=== PATIENT | male | born 1970 | race Caucasian/White ===

== ENCOUNTER 2016-09-11 10:28 | Emergency (ER) | payer BC, OTHER ==
[~2016-09-11] VITALS: Ht 182.9 cm; Wt 96.5 kg
[2016-09-11 10:31] VITALS: Ht 182.9 cm; Wt 96.5 kg
[2016-09-11] MEDS ORDERED: HYDROmorphONE 1 MG/ML SYG IV STA ×2 (10:39→12:00)
[2016-09-11] MEDS ORDERED: ONDANSETRON 4 MG INJ IV STA ×2 (10:39→12:00)
[2016-09-11 11:03] LABS: ADD SCAN DIFF NO
[2016-09-11] MEDS ORDERED: SITA1TAB5 PO (11:14)
--- NOTE | 2016-09-11 11:20 | RADRPT ---
AMENDMENT: 09/12/2016 4:30:37 PM Meghna Ordaz MD Adjacent to the left distal ureter; there is a prominent, 9 x 9 x 9 mm calcification with a lucent c enter that likely represents a phlebolith. Potentially, it could represent a left distal ureteral s tone. Urologic follow-up is suggested. PROCEDURE: CT abdomen and pelvis without contrast. Site of service: emergency room. CLINICAL INDICATION: Periumbilical abdominal pain TECHNIQUE: CT scan of the abdomen and pelvis without contrast was performed on the CT scanner. Th e patient was scanned without intravenous contrast. Oral contrast was not administered. 3-D post p rocessing coronal and sagittal re-formations were obtained from the axial source images. Exam D L P [address] D V O L 17 mgy. This exam is limited due to lack of intravenous contrast. One or more of the following dose reduction techniques were used: Automated exposure control Adjustment of the mA and/or kV according to patient size. Use of iterative reconstruction technique. COMPARISON: December 02, 2008 FINDINGS: CT abdomen: The lung bases are clear. The heart size is normal, without pericardial thickening or effusion. The liver is normal in size and density without focal mass or intrahepatic biliary dilatation. The spleen is normal in size and homogeneous in density. The stomach is partially collapsed, but is jessi ssly unremarkable. The pancreas as visualized is normal. The gallbladder and biliary tree are unre markable and there is no evidence for biliary dilatation. The adrenal glands are symmetric and normal. In the right ureteropelvic junction; there are 2 stones causing moderate, acute, right collecting sy stem dilatation and perinephric stranding. The larger stone measures 2 x 2 x 1.2 cm in AP dimension , with a CT density of 1203 HU. The smaller stone measures 11 x 11 x 11 mm with an average density of 1030 Hounsfield units. Urologic follow-up is needed. The left kidney is atrophic. No left collecting system dilatation or obstructing stones are seen. The bladder is unremarkable. The aorta is of normal caliber. There is no retroperitoneal lymphadenopathy. The neris hepatis bhavna on is clear. The bowel and mesentery, as visualized, are equally unremarkable. CT pelvis: The small bowel loops situated within the pelvis are unremarkable. The appendix is normal. The sig moid colon and rectum are all unremarkable. No mass, lymphadenopathy, or free fluid is seen. No ac [place] inflammation is seen. Mild constipation is present The pelvic organs are normal. The pelvic sidewalls and inguinal regions are clear. The surrounding osseous structures are normal. No osteolytic or osteoblastic lesion is detected. IMPRESSION: Acute, moderate, right collecting system dilatation with the right perinephric stranding due to 2, l arge, obstructing right UPJ stones measuring 2 x 2 x 1.2 cm, and 11 x 11 x 11 mm. The stones have a n average CT density of 1200 and 1030 HU respectively. Urologic follow-up is needed. RPTAT: QQ .Meghna Ordaz MD, MD Date Time Electronically viewed and signed by .Meghna Ordaz MD, on 09/12/2016 16:30 .F/
[2016-09-11 11:34] LABS: BASOPHIL # 0.1 10^3/ul (0.0-0.1); BASOPHILS % 0.5 % (0.0-2.0); EOSINOPHILS # 0.1 10^3/ul (0.0-0.5); EOSINOPHILS % 0.8 % (0.0-7.0); HEMOGLOBIN 15.8 g/dl (14.0-18.0); LYMPHOCYTES # 2.1 10^3/ul (0.8-2.9); LYMPHOCYTES % 19.3 % (15.0-51.0); MEAN CORPUSCULAR HEMOGLOBIN 27.5 pg (29.0-33.0); MEAN CORPUSCULAR HGB CONC 33.6 g/dl (32.0-37.0); MEAN CORPUSCULAR VOLUME 81.9 fl (82.0-101.0); MEAN PLATELET VOLUME 10.8 fl (7.4-10.4); MONOCYTE # 0.7 10^3/ul (0.3-0.9); PLATELET COUNT 206 10^3/UL (140-415); RED BLOOD COUNT 5.74 10^6/ul (4.70-6.10); RED CELL DISTRIBUTION WIDTH 12.5 % (11.5-14.5)
[2016-09-11 11:47] LABS: CALCIUM 9.8 mg/dl (8.4-10.2); CREATININE 1.73 mg/dl (0.61-1.24)
[2016-09-11 13:19] VITALS: BP 154/94; PULSE 71; RESP 12
[2016-09-11] MEDS ORDERED: TAMS-14 PO (13:47)
[2016-09-11] MEDS ORDERED: CIPR500T4 PO (13:47)
[2016-09-11] MEDS ORDERED: HYDR-902 PO (13:47)
--- NOTE | 2016-09-11 13:54 | ERD ---
ER Documentation Chief Complaint Date/Time DATE: 09/11/16 TIME: 13:48 Chief Complaint Complains of right flank pain HPI This 46-year-old male with a history of renal stones is complaining of the onset this morning of sharp right flank pain radiating into the right mid abdominal region. He says the pain is sharp in exactly like prior kidney stones. He has nausea but no vomiting diarrhea no chest pain or shortness of breath no gross hematuria. Patient states he gets kidney stone attacks every 6 months. ROS All systems reviewed and are negative except as per history of present illness. Medications Home Meds Active Scripts Ciprofloxacin Hcl* (Ciprofloxacin Hcl*) 500 Mg Tablet, 500 MG PO BID for 7 Days , TAB Prov:ANDREW ÁLVAREZSTTINGS Riddhi. DO 09/11/16 Tamsulosin Hcl* (Flomax*) 0.4 Mg Cap.er.24h, 0.4 MG PO BID, #30 CAP Prov:CARMENCITA ÁLVAREZS Riddhi. DO 09/11/16 Hydrocodone/Acetaminophen ([place] 10-325 Tablet) 1 Each Tablet, 1 TAB PO Q6H Y for PAIN, #30 TAB Prov:ANDREW ÁLVAREZSTTINGS A. DO 09/11/16 Reported Medications Sitagliptin Phos/Metformin HCl (Janumet 50-1,000 mg Tablet) 1 Each Tablet, 1 EACH PO BID WITH MEALS, TAB 09/11/16 Allergies Allergies: Coded Allergies: No Known Allergy (Unverified , 09/11/16) PMhx/Soc Hx Psychiatric Problems: No Hx Miscellaneous Medical Probl: Yes (DM) Hx Alcohol Use: No Hx Substance Use: No Hx Tobacco Use: No Smoking Status: Never smoker FmHx Family History: No coronary disease Physical Exam Vitals Vital Signs Date Time Temp Pulse Resp B/P Pulse Ox O2 Delivery O2 Flow Rate FiO2 09/11/16 12:15 72 11 157/97 93 Room Air 09/11/16 10:54 65 19 164/99 100 Room Air 09/11/16 10:31 97.8 66 20 187/91 100 Physical Exam Const: Well-developed, well-nourished Head: Atraumatic, normocephalic Eyes: Normal Conjunctiva, PERRLA, EOMI, normal sclera, no nystagmus ENT: Normal External Ears, Nose and Mouth, moist mucus membranes. Neck: Full range of motion. No meningismus, no lymphadenopathy. Resp: Clear to auscultation bilaterally, no wheezing, rhonchi, rales Cardio: Regular rate and rhythm, no murmurs, S1 S2 present Abd: Soft, non tender x 4, non distended. Normal bowel sounds, no guarding or rebound, no pulsitile abdominal masses or bruits Skin: No petechiae or rashes, no ecchymosis , no maculopapular rash Back: Mild right CVA tenderness Ext: No cyanosis, or edema, FROM x 4, normal inspection, neurovascularly intact x 4 Neur: Awake and alert, STR 5/5 x 4, sensation intact x 4, no focal findings, cerebellum intact Psych: Normal Mood and Affect Result Diagram: 09/11/16 1050 09/11/16 1050 Results 24 hrs Laboratory Tests Test 09/11/16 10:50 White Blood Count 11.010^3/ul Red Blood Count 5.7410^6/ul Hemoglobin 15.8g/dl Hematocrit 47.0% Mean Corpuscular Volume 81.9fl Mean Corpuscular Hemoglobin 27.5pg Mean Corpuscular Hemoglobin Concent 33.6g/dl Red Cell Distribution Width 12.5% Platelet Count 48306^3/UL Mean Platelet Volume 10.8fl Neutrophils % 73.0% Lymphocytes % 19.3% Monocytes % 6.0% Eosinophils % 0.8% Basophils % 0.5% Nucleated Red Blood Cells % 0.0/100WBC Neutrophils # 8.010^3/ul Lymphocytes # 2.110^3/ul Monocytes # 0.710^3/ul Eosinophils # 0.110^3/ul Basophils # 0.110^3/ul Nucleated Red Blood Cells # 0.010^3/ul Sodium Level 142mmol/L Potassium Level 4.0mmol/L Chloride Level 105mmol/L Carbon Dioxide Level 24mmol/L Anion Gap 17 Blood Urea Nitrogen 24mg/dl Creatinine 1.73mg/dl Glucose Level 167mg/dl Calcium Level 9.8mg/dl Current Medications Medications (Trade) Dose Ordered Sig/Delmi Route PRN Reason Start Time Stop Time Status Last Admin Dose Admin Hydromorphone HCl (Dilaudid) 1 mg ONCE STAT IV 09/11/16 10:39 09/11/16 10:46 DC 09/11/16 10:48 Ondansetron HCl (Zofran Inj) 4 mg ONCE STAT IV 09/11/16 10:39 09/11/16 10:46 DC 09/11/16 10:47 Hydromorphone HCl (Dilaudid) 1 mg ONCE STAT IV 09/11/16 12:00 09/11/16 12:01 DC 09/11/16 12:05 Ondansetron HCl (Zofran Inj) 4 mg ONCE STAT IV 09/11/16 12:00 09/11/16 12:01 DC 09/11/16 12:04 Procedures/MDM PROCEDURE: CT abdomen and pelvis without contrast. Site of service: emergency room. CLINICAL INDICATION: Periumbilical abdominal pain TECHNIQUE: CT scan of the abdomen and pelvis without contrast was performed on the CT scanner. The patient was scanned without intravenous contrast. Oral contrast was not administered. 3-D post processing coronal and sagittal re- formations were obtained from the axial source images. Exam D L P [address] D V O L 17 mgy. This exam is limited due to lack of intravenous contrast. One or more of the following dose reduction techniques were used: Automated exposure control Adjustment of the mA and/or kV according to patient size. Use of iterative reconstruction technique. COMPARISON: December 02, 2008 FINDINGS: CT abdomen: The lung bases are clear. The heart size is normal, without pericardial thickening or effusion. The liver is normal in size and density without focal mass or intrahepatic biliary dilatation. The spleen is normal in size and homogeneous in density. The stomach is partially collapsed, but is grossly unremarkable. The pancreas as visualized is normal. The gallbladder and biliary tree are unremarkable and there is no evidence for biliary dilatation. The adrenal glands are symmetric and normal. In the right ureteropelvic junction; there are 2 stones causing moderate, acute , right collecting system dilatation and perinephric stranding. The larger stone measures 2 x 2 x 1.2 cm in AP dimension, with a CT density of 1203 HU. The smaller stone measures 11 x 11 x 11 mm with an average density of 1030 Hounsfield units. Urologic follow-up is needed. The left kidney is atrophic. No left collecting system dilatation or obstructing stones are seen. The bladder is unremarkable. The aorta is of normal caliber. There is no retroperitoneal lymphadenopathy. The neris hepatis region is clear. The bowel and mesentery, as visualized, are equally unremarkable. CT pelvis: The small bowel loops situated within the pelvis are unremarkable. The appendix is normal. The sigmoid colon and rectum are all unremarkable. No mass , lymphadenopathy, or free fluid is seen. No acute inflammation is seen. Mild constipation is present The pelvic organs are normal. The pelvic sidewalls and inguinal regions are clear. The surrounding osseous structures are normal. No osteolytic or osteoblastic lesion is detected. IMPRESSION: Acute, moderate, right collecting system dilatation with the right perinephric stranding due to 2, large, obstructing right UPJ stones measuring 2 x 2 x 1.2 cm , and 11 x 11 x 11 mm. The stones have an average CT density of 1200 and 1030 HU respectively. Urologic follow-up is needed. RPTAT: QQ .Meghna Ordaz MD, Date Time Electronically viewed and signed by .Meghna Ordaz MD, on 09/11/2016 11:19 .F/ CC: HENOK ÁLVAREZ DO Patient's pain is controlled. Discussed the case and CT scan lab findings with Dr. Kuhn. The patient will be seen in his office this week he told me to have them call tomorrow. Reviewed with the patient signs and symptoms to return. Will discharge him on Flomax, Cipro, hydrocodone Departure Diagnosis: Primary Impression: Ureterolithiasis Condition: Stable Patient Instructions: Kidney Stone W/ Colic Referrals: LUCY KUHN MD, APOSTOLOS A. DO Sep 11, 2016 13:54
== END 2016-09-11 14:08 | disposition home or self-care (01) ==
LOC: E/R 10:28
DX: N20.1 Calculus of ureter (principal); E11.9 Type 2 diabetes mellitus without complications; Z79.84 Long term (current) use of oral hypoglycemic drugs
CPT/HCPCS: 36415; 74176; 80048; 85025; 96374; 96375; 96376; J1170; J2405; Z7502; Z7610

== ENCOUNTER 2016-09-12 09:16 | Inpatient (IN) | payer OTHER ==
[2016-09-12] VITALS (12 sets, daily range): BP systolic 131–159; BP diastolic 62–95; PULSE 92–104; RESP 15–21; TEMP 98.3; Ht 185.4 cm; Wt 97.1 kg
[~2016-09-12] VITALS: Ht 185.4 cm; Wt 97.1 kg
[~2016-09-12 09:16] MED LIST: CIPR500T4 PO; HYDR-902 PO; SITA1TAB5 PO; TAMS-14 PO
[2016-09-12] MEDS ORDERED: SOD CHLORIDE 0.9% 1,000 ML IV STA ×2 (09:32→11:38)
[2016-09-12] MEDS ORDERED: HYDROmorphONE 1 MG/ML SYG IV STA ×2 (09:32→13:46)
[2016-09-12] MEDS ORDERED: ONDANSETRON 4 MG INJ IV STA ×2 (09:32→13:46)
--- NOTE | 2016-09-12 09:44 | ERD ---
ER Documentation Chief Complaint Date/Time DATE: 09/12/16 TIME: 09:43 Chief Complaint here yesterday c/o same flank pain ROS All systems reviewed and are negative except as per history of present illness. Medications Home Meds Active Scripts Ciprofloxacin Hcl* (Ciprofloxacin Hcl*) 500 Mg Tablet, 500 MG PO BID for 7 Days , TAB Prov:HENOK ÁLVAREZ DO 09/11/16 Tamsulosin Hcl* (Flomax*) 0.4 Mg Cap.er.24h, 0.4 MG PO BID, #30 CAP Prov:HENOK ÁLVAREZAyush DO 09/11/16 Hydrocodone/Acetaminophen ([place] 10-325 Tablet) 1 Each Tablet, 1 TAB PO Q6H Y for PAIN, #30 TAB Prov:HENOK ÁLVAREZAyush DO 09/11/16 Reported Medications Sitagliptin Phos/Metformin HCl (Janumet 50-1,000 mg Tablet) 1 Each Tablet, 1 EACH PO BID WITH MEALS, TAB 09/11/16 Allergies Allergies: Coded Allergies: No Known Allergy (Unverified , 09/11/16) PMhx/Soc History of Surgery: No Anesthesia Reaction: No Hx Neurological Disorder: No Hx Respiratory Disorders: No Hx Cardiac Disorders: No Hx Psychiatric Problems: No Hx Miscellaneous Medical Probl: No Hx Alcohol Use: No Hx Substance Use: No Hx Tobacco Use: No Smoking Status: Never smoker Physical Exam Vitals Vital Signs Date Time Temp Pulse Resp B/P Pulse Ox O2 Delivery O2 Flow Rate FiO2 09/12/16 09:18 98.1 94 18 151/91 99 Result Diagram: 09/12/1645 09/12/16 0945 Results 24 hrs Laboratory Tests Test 09/12/16 09:45 White Blood Count 11.910^3/ul Red Blood Count 5.4510^6/ul Hemoglobin 15.5g/dl Hematocrit 45.2% Mean Corpuscular Volume 82.9fl Mean Corpuscular Hemoglobin 28.4pg Mean Corpuscular Hemoglobin Concent 34.3g/dl Red Cell Distribution Width 12.7% Platelet Count 85398^3/UL Mean Platelet Volume 10.6fl Neutrophils % 75.4% Lymphocytes % 14.9% Monocytes % 8.5% Eosinophils % 0.5% Basophils % 0.3% Nucleated Red Blood Cells % 0.0/100WBC Neutrophils # 8.910^3/ul Lymphocytes # 1.810^3/ul Monocytes # 1.010^3/ul Eosinophils # 0.110^3/ul Basophils # 0.010^3/ul Nucleated Red Blood Cells # 0.010^3/ul Sodium Level 140mmol/L Potassium Level 4.2mmol/L Chloride Level 104mmol/L Carbon Dioxide Level 23mmol/L Anion Gap 17 Blood Urea Nitrogen 38mg/dl Creatinine 4.20mg/dl Glucose Level 201mg/dl Calcium Level 9.5mg/dl Current Medications Medications (Trade) Dose Ordered Sig/Delmi Route PRN Reason Start Time Stop Time Status Last Admin Dose Admin Sodium Chloride (NS) 1,000 ml @ 1,000 mls/hr Q1H STAT IV 09/12/16 09:32 09/12/16 10:31 DC 09/12/16 09:39 Hydromorphone HCl (Dilaudid) 1 mg ONCE STAT IV 09/12/16 09:32 09/12/16 09:33 DC 09/12/16 09:39 Ondansetron HCl (Zofran Inj) 4 mg ONCE STAT IV 09/12/16 09:32 09/12/16 09:33 DC 09/12/16 09:39 KEN PHAN PA-C Sep 12, 2016 09:44
[2016-09-12 10:13] LABS: ADD SCAN DIFF NO
[2016-09-12 10:17] LABS: BASOPHILS % 0.3 % (0.0-2.0); EOSINOPHILS # 0.1 10^3/ul (0.0-0.5); EOSINOPHILS % 0.5 % (0.0-7.0); HEMATOCRIT 45.2 % (42.0-52.0); HEMOGLOBIN 15.5 g/dl (14.0-18.0); LYMPHOCYTES # 1.8 10^3/ul (0.8-2.9); LYMPHOCYTES % 14.9 % (15.0-51.0); MEAN CORPUSCULAR HEMOGLOBIN 28.4 pg (29.0-33.0); MEAN CORPUSCULAR HGB CONC 34.3 g/dl (32.0-37.0); MEAN CORPUSCULAR VOLUME 82.9 fl (82.0-101.0); MEAN PLATELET VOLUME 10.6 fl (7.4-10.4); MONOCYTES % 8.5 % (0.0-11.0); NEUTROPHIL # 8.9 10^3/ul (1.6-7.5); NEUTROPHILS % 75.4 % (39.0-77.0); PLATELET COUNT 166 10^3/UL (140-415); RED BLOOD COUNT 5.45 10^6/ul (4.70-6.10); RED CELL DISTRIBUTION WIDTH 12.7 % (11.5-14.5); WHITE BLOOD COUNT 11.9 10^3/ul (4.8-10.8)
[2016-09-12 10:41] LABS: CALCIUM 9.5 mg/dl (8.4-10.2); CREATININE 4.2 mg/dl (0.61-1.24); POTASSIUM 4.2 mmol/L (3.5-5.1)
[2016-09-12] MEDS ORDERED: CEFTRIAXONE 1 GM/50 ML (PMX) 50 ML IVPB ONE (11:30)
--- NOTE | 2016-09-12 11:38 | ERA ---
ER Documentation Chief Complaint Date/Time DATE: 09/12/16 TIME: 11:34 Chief Complaint here yesterday c/o same flank pain HPI This is a 46-year-old male who was seen by me yesterday with a diagnosis of 2 large ureter stones located at the U PJ on the right at 2.1 cm and 11 mm. The patient was sent home and to follow-up with Dr. Lopez. The patient did not call him today. Patient states that he has had continuing right flank pain all night long and that the hydrocodone is not decreasing the pain enough. Is not having any fever vomiting but he does have nausea. No hematuria ROS All systems reviewed and are negative except as per history of present illness. Medications Home Meds Active Scripts Ciprofloxacin Hcl* (Ciprofloxacin Hcl*) 500 Mg Tablet, 500 MG PO BID for 7 Days , TAB Prov:HENOK ÁLVAREZ DO 09/11/16 Tamsulosin Hcl* (Flomax*) 0.4 Mg Cap.er.24h, 0.4 MG PO BID, #30 CAP Prov:HENOK ÁLVAREZ DO 09/11/16 Hydrocodone/Acetaminophen ([place] 10-325 Tablet) 1 Each Tablet, 1 TAB PO Q6H Y for PAIN, #30 TAB Prov:HENOK ÁLVAREZ DO 09/11/16 Reported Medications Sitagliptin Phos/Metformin HCl (Janumet 50-1,000 mg Tablet) 1 Each Tablet, 1 EACH PO BID WITH MEALS, TAB 09/11/16 Allergies Allergies: Coded Allergies: No Known Allergy (Unverified , 09/11/16) PMhx/Soc History of Surgery: No Anesthesia Reaction: No Hx Neurological Disorder: No Hx Respiratory Disorders: No Hx Cardiac Disorders: No Hx Psychiatric Problems: No Hx Miscellaneous Medical Probl: No Hx Alcohol Use: No Hx Substance Use: No Hx Tobacco Use: No Smoking Status: Never smoker FmHx Family History: No coronary disease Physical Exam Vitals Vital Signs Date Time Temp Pulse Resp B/P Pulse Ox O2 Delivery O2 Flow Rate FiO2 09/12/16 11:00 98.3 74 20 159/101 100 Room Air 09/12/16 09:18 98.1 94 18 151/91 99 Physical Exam Const: Well-developed, well-nourished Head: Atraumatic, normocephalic Eyes: Normal Conjunctiva, PERRLA, EOMI, normal sclera, no nystagmus ENT: Normal External Ears, Nose and Mouth, moist mucus membranes. Neck: Full range of motion. No meningismus, no lymphadenopathy. Resp: Clear to auscultation bilaterally, no wheezing, rhonchi, rales Cardio: Regular rate and rhythm, no murmurs, S1 S2 present Abd: Soft, non tender x 4, non distended. Normal bowel sounds, no guarding or rebound, no pulsitile abdominal masses or bruits Skin: No petechiae or rashes, no ecchymosis , no maculopapular rash Back: Right CVA tenderness Ext: No cyanosis, or edema, FROM x 4, normal inspection, neurovascularly intact x 4 Neur: Awake and alert, STR 5/5 x 4, sensation intact x 4, no focal findings, cerebellum intact Psych: Normal Mood and Affect Result Diagram: 09/12/16 0945 09/12/16 0945 Results 24 hrs Laboratory Tests Test 09/12/16 09:45 White Blood Count 11.910^3/ul Red Blood Count 5.4510^6/ul Hemoglobin 15.5g/dl Hematocrit 45.2% Mean Corpuscular Volume 82.9fl Mean Corpuscular Hemoglobin 28.4pg Mean Corpuscular Hemoglobin Concent 34.3g/dl Red Cell Distribution Width 12.7% Platelet Count 60048^3/UL Mean Platelet Volume 10.6fl Neutrophils % 75.4% Lymphocytes % 14.9% Monocytes % 8.5% Eosinophils % 0.5% Basophils % 0.3% Nucleated Red Blood Cells % 0.0/100WBC Neutrophils # 8.910^3/ul Lymphocytes # 1.810^3/ul Monocytes # 1.010^3/ul Eosinophils # 0.110^3/ul Basophils # 0.010^3/ul Nucleated Red Blood Cells # 0.010^3/ul Sodium Level 140mmol/L Potassium Level 4.2mmol/L Chloride Level 104mmol/L Carbon Dioxide Level 23mmol/L Anion Gap 17 Blood Urea Nitrogen 38mg/dl Creatinine 4.20mg/dl Glucose Level 201mg/dl Calcium Level 9.5mg/dl Current Medications Medications (Trade) Dose Ordered Sig/Delmi Route PRN Reason Start Time Stop Time Status Last Admin Dose Admin Sodium Chloride (NS) 1,000 ml @ 1,000 mls/hr Q1H STAT IV 09/12/16 09:32 09/12/16 10:31 DC 09/12/16 09:39 Hydromorphone HCl (Dilaudid) 1 mg ONCE STAT IV 09/12/16 09:32 09/12/16 09:33 DC 09/12/16 09:39 Ondansetron HCl 4 mg 4 mg ONCE STAT IV 09/12/16 09:32 09/12/16 09:33 DC 09/12/16 09:39 Ceftriaxone Sodium (Rocephin) 50 ml @ 100 mls/hr ONCE ONCE IVPB 09/12/16 11:30 09/12/16 11:59 UNV Procedures/MDM The patient's creatinine has been elevated since yesterday. Yesterday's level was 1.78. Today's greater than 4. Spoke with Dr. Lopez. The patient be admitted to the hospital and will need to go cystoscopy with stone breakup and stent. Patient's white blood count 11.9 Urinalysis is pending at this time Departure Diagnosis: Primary Impression: Ureterolithiasis Additional Impression: Renal failure Condition: Stable HENOK ÁLVAREZ DO Sep 12, 2016 11:38
[2016-09-12] MEDS ORDERED: SOD CHLORIDE 0.9% 1,000 ML IV SCH (13:28)
[2016-09-12] MEDS ORDERED: ONDANSETRON 4 MG INJ IV PRN ×3 (13:30→21:00)
[2016-09-12] MEDS ORDERED: ACETAMINOPHEN 325 MG TAB PO PRN (13:30)
[2016-09-12] MEDS ORDERED: INSULIN ASPART [NOVOLOG] 3 ML PEN SC SCH (15:00)
[2016-09-12] MEDS ORDERED: morphine 2 MG INJ IV PRN (15:00)
[2016-09-12] MEDS ORDERED: GLUCOSE GEL 15 GRAM TUBE PO PRN ×2 (15:00)
[2016-09-12] MEDS ORDERED: NACL 0.9% 3 ML SYG IV SCH (15:00)
[2016-09-12] MEDS ORDERED: DEXTROSE 50% 50 ML SYRINGE IV PRN ×2 (15:00)
[2016-09-12] MEDS ORDERED: GLUCAGON 1 MG INJ IM PRN (15:00)
[2016-09-12] MEDS ORDERED: GLUCOSE GEL 15 GRAM TUBE BUCCAL PRN (15:00)
[2016-09-12] MEDS ORDERED: HYDROCODONE/APAP (5/325) TAB PO PRN (15:00)
[2016-09-12 15:24] LABS: ADD UMIC YES; URINE BILIRUBIN (Dip) NEGATIVE (NEGATIVE); URINE BLOOD (Dip) TRACE (NEGATIVE); URINE COLOR LT. YELLOW (YELLOW); URINE GLUCOSE (Dip) NEGATIVE (NEGATIVE); URINE KETONES (Dip) NEGATIVE (NEGATIVE); URINE LEUKOCYTE ESTERASE (Dip) NEGATIVE (NEGATIVE); URINE NITRITE (Dip) NEGATIVE (NEGATIVE); URINE TOTAL PROTEIN (Dip) TRACE (NEGATIVE); URINE UROBILINOGEN (Dip) 0.2 E.U./dL (0.1-1.0)
--- NOTE | 2016-09-12 15:25 | HP ---
DATE OF ADMISSION: 09/12/2016 REASON FOR ADMISSION: Flank pain. CONSULTATIONS: 1. Dr. Abdulaziz Lopez, Urology. 2. Dr. Ryan Rehman, Nephrology. HISTORY OF PRESENT ILLNESS: This is a 46-year-old male with past medical history of type 2 diabetes mellitus and recurrent urolithiasis who came to the emergency room with chief complaint of bilateral flank pain. The patient was seen in the emergency room at [facility] on 09/11/2016 because of similar complaints of right flank pain. On 09/11/2006, the patient underwent a CT scan of the abdomen and pelvis that showed acute moderate right collecting system dilatation with right perinephric stranding due to 2 large obstructing right UPJ stones, especially 2 x 2 x 1.2 cm and 11 x 11 x 11 mm. Consequently, the patient was discharged home on analgesics to be followed up with outpatient urology. The patient was also discharged on Flomax and ciprofloxacin. The case was discussed with Dr. Lopez on 09/11/2016 by the ER doctor. The patient was discharged home to be followed up with outpatient urology. The patient could not handle his pain which was getting worse; hence, the patient came back to the emergency room on 09/12/2016. In the emergency room, the patient was noticed to have BUN and creatinine of 38 and 4.20 respectively, increased from 24 and 1.73 respectively on 09/11/2016. The patient was complaining of dark colored urine. The patient was complaining of flank pain that was radiating to his right groin. The patient denied any fevers or chills. He was started with IV Rocephin and IV analgesics in the emergency room. Urology was consulted by the ER physician. PAST MEDICAL HISTORY: Nephrolithiasis, type 2 diabetes mellitus. PAST SURGICAL HISTORY: None. HOME MEDICATIONS 1. Ciprofloxacin 500 mg p.o. b.i.d. 2. Flomax 0.4 mg p.o. b.i.d. 3. [place] 5/325, one tablet p.o. q. 6 hours p.r.n. pain. 4. Janumet 50/100, one tablet p.o. b.i.d. with meals. ALLERGIES: NO KNOWN DRUG ALLERGIES. SOCIAL HISTORY: The patient lives at home with his family. Denies any use of tobacco, alcohol, or illicit drugs. REVIEW OF SYSTEMS: A 12-point review of systems was made, and the review of systems was negative other than what is mentioned in history of present illness. PHYSICAL EXAMINATION: VITAL SIGNS: Temperature 98.3, pulse rate 83, respiratory rate 20, blood pressure 151/94, oxygen saturation 99% on room air. GENERAL: This is an obese male patient lying in bed in no apparent distress. HEENT: Head normocephalic and atraumatic. Eyes: Anicteric sclerae. Conjunctivae clear. Nasal septum is midline. Oral mucosa is dry. NECK: Supple. No JVD noticed. RESPIRATORY: Bilaterally clear to auscultation. No adventitious breath sounds. No use of accessory muscles of respiration. CARDIAC: Regular rate and rhythm. S1 and S2 heard. ABDOMEN: Soft, nontender. Bowel sounds hypoactive in all 4 quadrants. GENITOURINARY: Right CVA tenderness. EXTREMITIES: No cyanosis, no clubbing, no edema. Peripheral pulses are palpable. NEUROLOGIC: The patient is awake, alert, and oriented. Cranial nerves are grossly intact. LABORATORY AND DIAGNOSTIC DATA: WBC 11.9, hemoglobin 15.5, hematocrit 45.2, platelet count 166. Sodium 140, potassium 4.0, chloride 104, carbon dioxide 23 , anion gap 17, BUN 30, creatinine 4.20, glucose 201, calcium 9.5. CT scan of the abdomen and pelvis done on 09/11/2016 showed acute moderate right collecting system dilatation with right perinephric stranding due to 2 large obstructing right UPJ stones measuring 2 x 2 x 1.2 cm and 11 x 11 x 11 mm. IMPRESSION: This is a 46-year-old male with past medical history of type 2 diabetes mellitus and prior nephrolithiasis who came to the emergency room with the complaint of right-sided flank pain and was found to have evidence of obstructing ureteral stones with resultant acute kidney injury who will be admitted here for further treatment and evaluation. ASSESSMENT AND PLAN: 1. Ureterolithiasis with 2 large obstructing ureteropelvic junction stones. The patient will be provided with adequate pain control. The patient will be started on antibiotics. The patient will be provided with adequate IV hydration. Urology consult has been called by the ER physician. We will await urology evaluation. 2. Acute kidney injury, most probably post-obstructive renal failure. The patient will be adequately hydrated. We will avoid any nephrotoxic medications. The patient's BUN and creatinine will be monitored closely. Nephrology consult will be obtained. 3. Type 2 diabetes mellitus. Hemoglobin A1c will be obtained to evaluate the blood glucose control over the past few weeks. The patient will be started on sliding scale insulin. 4. Obesity. BMI of 35.9 kilograms per meter squared. Fasting lipid panel will be obtained. Weight reduction will be advised. Plan. The patient will be admitted to inpatient medical/surgical floor. The patient will be started on DVT prophylaxis and gastrointestinal prophylaxis. The patient will remain a FULL CODE. Activities will be as tolerated. The patient will remain n.p.o. until evaluated by urology. The rest of the patient's management will be based on the clinical course, the results of diagnostic studies, and inputs from consultants. Based on the patient's clinical presentation, he most probably requires at least 1 midnight's stay for further management and evaluation of his clinical presentation. The case and management of this patient was fully discussed with Dr. Bowles. HELENE BOWLES MD, AM/ESTEVAN Conf#: [id number] DID#: [id number] MTDD
[2016-09-12 15:35] LABS: URINE RBCS 0-2 /HPF (0)
[2016-09-12] MEDS: ACETAMINOPHEN 325 MG TAB PO PRN (16:04)
[2016-09-12] MEDS: SOD CHLORIDE 0.9% 1,000 ML IV SCH (16:06)
[2016-09-12] MEDS: hydrALAzine 20 MG INJ IV PRN ×2 (16:31→22:41)
[2016-09-12] MEDS: Insulin NOVOLOG SS MILD Algorithm (NPO/TPN/ENTERAL FEEDS) SC SCH ×2 (17:00→23:43)
--- NOTE | 2016-09-12 20:52 | CONS ---
Date/Time of Note Date/Time of Note DATE: 09/12/16 TIME: 20:47 Assessment/Plan Assessment/Plan Additional Assessment/Plan Assessment Right-sided obstructed kidney from 2 large proximal ureteral/ureteropelvic junction stones. I suspect he may have an infection above the stones He has right-sided flank pain Also he has an atrophic kidney on the left probably resulting from a distal ureteral stone he was unaware of eventually resulting in renal atrophy. Though it is possible that that kidney can be infected as well very focused on his right side because that is where his pain is at. I had a lengthy discussion with the patient and his on more than one occasion. I explained to them that at this point being that it is important that we drain his right kidney to avoid septic phenomenon. The purpose of this venture simply distend to not remove the stone to reduce his pain and reduce his sepsis risk. The asked me on numerous occasions why we cannot take the stone out and I explained her that is not safe and not possible to do it on this setting and they would need to be done at a separate time after he recovers from this present episode. All questions are answered and he wishes to proceed Consultation Date/Type/Reason Admit Date/Time Sep 12, 2016 at 13:29 Date of Consultation: Sep 12, 2016 Type of Consultation: Urology Reason for Consultation Ureteral and renal obstruction Hx of Present Illness Thank you for request for evaluation Gentleman presented to the emergency room twice within 48 hours. He has 2 sizable stones at the right kidney right UPJ each over a centimeter. He initially presented with pain and then came back again with fever and overall feeling poorly. He also has renal insufficiency with creatinine of 4.[address] scan which shows the above findings it also shows an atrophic left kidney with the distal large sizable ureteral stone I suspect he had a unrecognized chronic left ureteral obstruction that resulted in atrophy of his left kidney. He says he has had stones in the past but never stone surgery he says he has always passed the stones. He says he has intermittent hematuria since February. He says he recently had a CT scan and all of his doctors told him that everything was okay Social History Smoking Status: Never smoker Exam/Review of Systems Vital Signs Vitals Vital Signs Date Time Temp Pulse Resp B/P Pulse Ox O2 Delivery O2 Flow Rate FiO2 09/12/16 17:23 98.1 95 151/84 6/12/17 15:58 21 98 Room Air Exam Constitutional: alert, other (He sweaty and uncomfortable) Psych: no complaints Eyes: nl conjunctiva Respiratory: clear to auscultation, normal air movement Gastrointestinal: non-tender, soft Genitourinary - Male: CVA tenderness (Right side), nl penis, nl scrotum Extremities: normal pulses Results Result Diagram: 09/12/1645 09/12/1645 Results 24 hrs Laboratory Tests Test 09/12/16 09:40 09/12/16 09:45 09/12/16 15:05 09/12/16 16:42 Hemoglobin A1c 6.3 H Vitamin D 1,25-Dihydroxy 34.6 Thyroid Stimulating Hormone (TSH) 1.240 Free Thyroxine 1.05 White Blood Count 11.9 H Red Blood Count 5.45 Hemoglobin 15.5 Hematocrit 45.2 Mean Corpuscular Volume 82.9 Mean Corpuscular Hemoglobin 28.4 L Mean Corpuscular Hemoglobin Concent 34.3 Red Cell Distribution Width 12.7 Platelet Count 166 Mean Platelet Volume 10.6 H Neutrophils % 75.4 Lymphocytes % 14.9 L Monocytes % 8.5 Eosinophils % 0.5 Basophils % 0.3 Nucleated Red Blood Cells % 0.0 Neutrophils # 8.9 H Lymphocytes # 1.8 Monocytes # 1.0 H Eosinophils # 0.1 Basophils # 0.0 Nucleated Red Blood Cells # 0.0 Sodium Level 140 Potassium Level 4.2 Chloride Level 104 Carbon Dioxide Level 23 Anion Gap 17 H Blood Urea Nitrogen 38 #H Creatinine 4.20 #H Glucose Level 201 Calcium Level 9.5 Urine Color LT. YELLOW Urine Clarity CLEAR Urine pH 6.0 Urine Specific [place] 1.010 Urine Ketones NEGATIVE Urine Nitrite NEGATIVE Urine Bilirubin NEGATIVE Urine Urobilinogen 0.2 E.U./dL Urine Leukocyte Esterase NEGATIVE Urine Microscopic RBC 0-2 Urine Microscopic WBC 0-2 Urine Epithelial Cells OCCASIONAL Urine Hemoglobin TRACE Urine Glucose NEGATIVE Urine Total Protein TRACE Bedside Glucose 137 Medications Medications Current Medications Sodium Chloride (NS) 1,000 ml @ 125 mls/hr Q8H IV Last administered on t 16:06; Admin Dose 125 MLS/HR; Start 09/12/16 at 14:31 Ondansetron HCl (Zofran Inj) 4 mg Q6H PRN IV NAUSEA AND/OR VOMITING; Start 03/19 at 15:00 Acetaminophen (Tylenol Tab) 650 mg Q6H PRN PO PAIN LEVEL 1-3 OR FEVER Last administered on 09/12/16 16:04; Admin Dose 650 MG; Start 09/12/16 at 15:00 Acetaminophen/ Hydrocodone Bitart ([place] (5/325)) 2 tab Q6H PRN PO SEVERE PAIN LEVEL 7-10; Start 09/12/16 at 15:00 Morphine Sulfate (morphine) 2 mg Q4H PRN IV SEVERE PAIN LEVEL 7-10; Start 09/12 at 15:00 Famotidine 20 mg 20 mg Q24H PO ; Start 09/12/16 at 21:00 Ceftriaxone Sodium (Rocephin) 50 ml @ 100 mls/hr Q24H IVPB ; Start 09/13/16 at 12:00 Hydralazine HCl (Apresoline) 10 mg Q6H PRN IV SBP>160 Last administered on 09/12 16:31; Admin Dose 10 MG; Start 09/12/16 at 15:00 Insulin Aspart (Novolog Insulin Pen) (Adult SC Insulin - Mild Algorithm)... Q4 SC ; Start 09/12/16 at 17:00 Miscellaneous Information 1 ea NOTE XX ; Start 09/12/16 at 15:00 Glucose (Glutose) 15 gm Q15M PRN PO DECREASED GLUCOSE; Start 09/12/16 at 15:00 Glucose (Glutose) 22.5 gm Q15M PRN PO DECREASED GLUCOSE; Start 09/12/16 at 15: 00 Dextrose (D50w Syringe) 25 ml Q15M PRN IV DECREASED GLUCOSE; Start 09/12/16 at 15:00 Dextrose (D50w Syringe) 50 ml Q15M PRN IV DECREASED GLUCOSE; Start 09/12/16 at 15:00 Glucagon (Glucagen) 1 mg Q15M PRN IM DECREASED GLUCOSE; Start 09/12/16 at 15:00 Glucose (Glutose) 15 gm Q15M PRN BUCCAL DECREASED GLUCOSE; Start 09/12/16 at 15 :00 LUCY KUHN MD Sep 12, 2016 20:52
[2016-09-12] MEDS ORDERED: LIDOCAINE 2% (SDV) 5 ML INJ ONE (20:55)
[2016-09-12] MEDS ORDERED: FENTAnyl 50 MCG/ML VIAL ONE (20:55)
[2016-09-12] MEDS ORDERED: PROPOFOL 20 ML ONE (20:55)
[2016-09-12] MEDS ORDERED: MIDAZOLAM 1 MG/ML 2 ML INJ ONE (20:55)
[2016-09-12] MEDS ORDERED: OXYCODONE/ACETAMINOPHEN (5/325) TAB PO PRN ×2 (21:00)
[2016-09-12] MEDS ORDERED: DIPHENHYDRAMINE 50 MG INJ IV PRN (21:00)
[2016-09-12] MEDS ORDERED: PROCHLORPERAZINE 10 MG INJ IV PRN (21:00)
[2016-09-12] MEDS ORDERED: LABETALOL HCL 20MG INJ IV PRN (21:00)
[2016-09-12] MEDS ORDERED: HYDROmorphONE (0.2 MG/ML) 10ML SYG IV PRN ×2 (21:00)
[2016-09-12] MEDS ORDERED: hydrALAzine 20 MG INJ IV PRN (21:00)
[2016-09-12] MEDS ORDERED: MEPERIDINE 25 MG INJ IV PRN (21:00)
[2016-09-12] MEDS ORDERED: EPHEDrine SULFATE 50 MG/5 ML SYG IV PRN (21:00)
[2016-09-12] MEDS ORDERED: FENTAnyl 50 MCG/ML VIAL IV PRN (21:00)
[2016-09-12] MEDS ORDERED: INSULIN ASPART [NOVOLOG] 3 ML PEN SC ONE (21:00)
[2016-09-12] MEDS ORDERED: METOCLOPRAMIDE 10 MG INJ ONE (21:13)
[2016-09-12] MEDS ORDERED: ONDANSETRON 4 MG INJ ONE (21:13)
--- NOTE | 2016-09-12 21:39 | OPR ---
Date/Time of Note Date/Time of Note DATE: 09/12/16 TIME: 21:35 Operative Report Free Text/Dictation Patient presented with renal insufficiency functional solitary kidney with obstruction Procedure Date: Sep 12, 2016 Preoperative Diagnosis Right renal ureteral stones with obstruction and renal failure Postoperative Diagnosis Same Operation Performed Right sided stent placement cystoscopy Surgeon: LUCY KUHN MD Anesthesia: general Estimated Blood Loss: none Specimens Urine right kidney Complications: None Pt Condition Post Procedure: stable Disposition: PACU Operative\Procedure Findings Patient is prepped and draped in a sterile fashion Cystoscopy performed with a rigid cystoscope. Initially however he had a phimosis that had to be peeled back but I did not need to make any incisions then reprepped the urethra Urethra normal prostate normal bladder free of foreign bodies calculi bladder tumors. 2 stones identified in the kidney/proximal ureter Ureteral catheter was used to introduce a guidewire into the right ureteric orifice which readily passed the stones into the kidney followed by a ureteral catheter hydronephrotic drip was obtained and 10 cc of brownish urine was sent for culture 7 x 24 double-J stent was inserted with final excellent position with a short string at the end The patient tolerated the procedure well left the operating room in satisfactory condition Procedure Description I spoke with the family at the conclusion and again I made it clear to him that I inserted a stent but did not remove the stones. I made it abundantly clear to the and 2 other people in attendance that the stone should be treated no sooner than 2 weeks from now. However I would not wait any longer than 3 months. I told him the stent needs to be removed or exchanged in 3 months. He understood that. LUCY KUHN MD Sep 12, 2016 21:39
[2016-09-12] MEDS: FAMOTIDINE 20 MG TAB PO SCH (22:41)
--- NOTE | 2016-09-12 23:06 | RADRPT ---
PROCEDURE: X-ray cystogram in surgery CLINICAL INDICATION: Stent placement TECHNIQUE: 2 intraoperative images were performed. 18.9 seconds of fluoroscopy time was utilized. COMPARISON: CT abdomen and pelvis without contrast of 09/11/2016 FINDINGS: On the first image there is the appearance of a calculus in right renal pelvis. On the second image a ureteral stent is seen extending adjacent to the calculus and superior to the calculus in right u pper renal collecting system. IMPRESSION: On the first image there is the appearance of a calculus in right renal pelvis. On the second image a ureteral stent is seen extending adjacent to the calculus and superior to the calculus in right u pper renal collecting system. Please see procedure report. RPTAT: HJES .Dickson Becker MD, Date Time Electronically viewed and signed by .Dickson Becker MD, on 09/12/2016 23:05 .S/
[2016-09-13] MEDS: Insulin NOVOLOG SS MILD Algorithm (NPO/TPN/ENTERAL FEEDS) SC SCH ×4 (01:00→12:09)
[2016-09-13] MEDS: SOD CHLORIDE 0.9% 1,000 ML IV SCH ×3 (04:59→21:57)
[2016-09-13 05:44] LABS: ADD SCAN DIFF NO
[2016-09-13 05:55] LABS: BASOPHILS % 0.2 % (0.0-2.0); EOSINOPHILS % 0.4 % (0.0-7.0); HEMATOCRIT 41.6 % (42.0-52.0); HEMOGLOBIN 14.4 g/dl (14.0-18.0); LYMPHOCYTES # 1.1 10^3/ul (0.8-2.9); LYMPHOCYTES % 10.8 % (15.0-51.0); MEAN CORPUSCULAR HEMOGLOBIN 28.7 pg (29.0-33.0); MEAN CORPUSCULAR HGB CONC 34.6 g/dl (32.0-37.0); MEAN PLATELET VOLUME 10.6 fl (7.4-10.4); MONOCYTE # 0.8 10^3/ul (0.3-0.9); NEUTROPHIL # 8.5 10^3/ul (1.6-7.5); NEUTROPHILS % 80.1 % (39.0-77.0); PLATELET COUNT 174 10^3/UL (140-415); RED BLOOD COUNT 5.01 10^6/ul (4.70-6.10); RED CELL DISTRIBUTION WIDTH 12.7 % (11.5-14.5); WHITE BLOOD COUNT 10.5 10^3/ul (4.8-10.8)
[2016-09-13 06:14] LABS: INR 1.09; PROTIME 14.1 Sec (12.2-14.2); PT RATIO 1.1
[2016-09-13 06:40] LABS: CHOL/HDL RATIO 5.6 RATIO; MAGNESIUM 1.9 mg/dl (1.7-2.5)
[2016-09-13 06:50] LABS: ALBUMIN 4.4 g/dl (3.3-4.9); ALBUMIN/GLOBULIN RATIO 1.62; BILIRUBIN,INDIRECT 0.5 mg/dl (0-1.1); BILIRUBIN,TOTAL 0.5 mg/dl (0.2-1.3); CALCIUM 9.3 mg/dl (8.4-10.2); CREATININE 3.9 mg/dl (0.61-1.24); POTASSIUM 3.8 mmol/L (3.5-5.1); TOTAL PROTEIN 7.1 g/dl (6.1-8.1)
[2016-09-13 07:30] VITALS: BP 158/90; RESP 18
[2016-09-13] MEDS: ACETAMINOPHEN 325 MG TAB PO PRN (08:13)
--- NOTE | 2016-09-13 09:54 | PDOCDIS ---
Discharge Instructions DIAGNOSIS Discharge Diagnosis: Ureterolithiasis. CONDITION Patient Condition: Stable HOME CARE INSTRUCTIONS: Special Diet: Carbohydrate controlled OTHER ORDERS: Other Orders: 1. Continue medications as per medication reconciliation. 2. Continue IV hydration. 3. Continue carbohydrate controlled diet. HELENE LIANG NP Sep 13, 2016 09:54
[2016-09-13] MEDS: CEFTRIAXONE 2 GM/50 ML (PMX) 50 ML IVPB SCH (12:10)
--- NOTE | 2016-09-13 12:18 | CONS ---
Date/Time of Note Date/Time of Note DATE: 09/13/16 TIME: 12:18 Assessment/Plan Assessment/Plan Additional Assessment/Plan 46 yo Male with 1. Ureterolithiasis with 2 large obstructing ureteropelvic junction stones. Status post placement of a right sided JJ stent by urology on 09/12/2016. 2. Acute kidney injury, 2nd to above probably post-obstructive renal failure. The patient also has a atrophic left-sided kidney. Underlying chronic kidney disease. 3. Type 2 diabetes mellitus. 4. Obesity. 5. Dyslipidemia. 6. Elevated BP, No History of HTN Renal function improving after procedure Pain better controlled, On IVFs Will cont to monitor UO, Electrolytes and Renal function closely, Repeat Chem in am Pt does not have hx of HTN,will cont to monitor, Low Na diet for now. Hydralzine orderd prn. Can DC IVFs tomorrow am Likely underlying CKD, Left atrophic Kidney Urology following closely Thank you for the opportunity to participate in the care of Mr Monten[place]ro. Consultation Date/Type/Reason Admit Date/Time Sep 12, 2016 at 13:29 Type of Consultation: Renal Reason for Consultation LAZARA Referring Provider: HELENE LIANG NP Hx of Present Illness 46-year-old male with history of type 2 diabetes mellitus and recurrent urolithiasis who presented to the emergency room at [facility] with chief complaint of bilateral flank pain. The patient was seen in the emergency room at [facility] on 09/11/2016 because of similar complaints of right flank pain. On 09/11/2006, the patient underwent a CT scan of the abdomen and pelvis that showed acute moderate right collecting system dilatation with right perinephric stranding due to 2 large obstructing right UPJ stone, subsequently patient was discharged home on analgesics to be followed up with outpatient urology and Rx for Flomax and ciprofloxacin. However despite Rx and Urology consultation pt re-presented due to persistent intolerable pain. In the emergency room, the patient was noticed to have BUN and creatinine of 38 and 4.20 respectively, increased from 24 and 1.73 respectively on 09/11/2016. The patient was complaining of dark colored urine. The patient was complaining of flank pain that was radiating to his right groin. The patient denied any fevers or chills. He was started with IV Rocephin and IV analgesics in the emergency room. Urology was consulted by the ER physician. Nephrology consultation also obtained for LAZARA. Patient has been seen by Dr Lopez and is S/p Right sided stent placement cystoscopy. Pain has significantly improved and patient has voided several times. Psychological: no complaints Additional Comments as per HPI Past Medical History Medical History: diabetes, renal disease Family History Significant Family History: no pertinent family hx Social History Alcohol Use: none Smoking Status: Never smoker Drug Use: none Exam/Review of Systems Vital Signs Vitals Vital Signs Date Time Temp Pulse Resp B/P Pulse Ox O2 Delivery O2 Flow Rate FiO2 09/13/16 07:30 98.1 82 18 158/90 96 09/12/16 22:00 Nasal Cannula 2.0 Intake and Output 09/12/16 09/12/16 09/13/16 15:00 23:00 07:00 Intake Total 1200 ml 1000 ml Output Total 4 ml Balance 1196 ml 1000 ml Exam Constitutional: alert, oriented, No distress Psych: No anxiety Head: atraumatic, normocephalic Eyes: EOMI, PERRL, nl conjunctiva ENMT: mucosa pink and moist Neck: supple, No jvd Respiratory: clear to auscultation, No diminished breath sounds, No labored breathing Cardiovascular: regular rate and rhythm, No edema Gastrointestinal: non-tender, soft, No distended Musculoskeletal: nl extremities to inspection Extremities: normal pulses, No edema Neurological: DATA COORDINATOR II-XII intact, nl mental status, nl speech, No focal weakness, No lethargic Skin: nl turgor, No diaphoresis, No rash or lesions Results Result Diagram: 09/13/16 0455 09/13/16 0455 Results 24 hrs Laboratory Tests Test 09/12/16 15:05 09/12/16 16:42 09/12/16 22:38 09/12/16 23:38 Urine Color LT. YELLOW Urine Clarity CLEAR Urine pH 6.0 Urine Specific [place] 1.010 Urine Ketones NEGATIVE Urine Nitrite NEGATIVE Urine Bilirubin NEGATIVE Urine Urobilinogen 0.2 E.U./dL Urine Leukocyte Esterase NEGATIVE Urine Microscopic RBC 0-2 Urine Microscopic WBC 0-2 Urine Epithelial Cells OCCASIONAL Urine Hemoglobin TRACE Urine Glucose NEGATIVE Urine Total Protein TRACE Bedside Glucose 137 150 195 Test 09/13/16 01:07 09/13/16 04:55 09/13/16 05:03 09/13/16 08:12 Bedside Glucose 221 H 149 165 White Blood Count 10.5 Red Blood Count 5.01 Hemoglobin 14.4 Hematocrit 41.6 L Mean Corpuscular Volume 83.0 Mean Corpuscular Hemoglobin 28.7 L Mean Corpuscular Hemoglobin Concent 34.6 Red Cell Distribution Width 12.7 Platelet Count 174 Mean Platelet Volume 10.6 H Neutrophils % 80.1 H Lymphocytes % 10.8 L Monocytes % 8.0 Eosinophils % 0.4 Basophils % 0.2 Nucleated Red Blood Cells % 0.0 Neutrophils # 8.5 H Lymphocytes # 1.1 Monocytes # 0.8 Eosinophils # 0.0 Basophils # 0.0 Nucleated Red Blood Cells # 0.0 Prothrombin Time 14.1 Prothrombin Time Ratio 1.1 INR International Normalized Ratio 1.09 Activated Partial Thromboplast Time 36.0 H Sodium Level 142 Potassium Level 3.8 Chloride Level 108 Carbon Dioxide Level 22 Anion Gap 16 Blood Urea Nitrogen 39 H Creatinine 3.90 H Glucose Level 144 # Calcium Level 9.3 Phosphorus Level 4.0 Magnesium Level 1.9 Total Bilirubin 0.5 Direct Bilirubin 0.00 Indirect Bilirubin 0.5 Aspartate Amino Transf (AST/SGOT) 13 L Alanine Aminotransferase (ALT/SGPT) 34 Alkaline Phosphatase 63 Total Protein 7.1 Albumin 4.4 Globulin 2.70 Albumin/Globulin Ratio 1.62 Triglycerides Level 126 Cholesterol Level 213 H LDL Cholesterol, Calculated 150 HDL Cholesterol 38 Cholesterol/HDL Ratio 5.6 Test 09/13/16 12:05 Bedside Glucose 237 H Medications Medications Current Medications Sodium Chloride (NS) 1,000 ml @ 125 mls/hr Q8H IV Last administered on 12:11; Admin Dose 125 MLS/HR; Start 09/12/16 at 14:31 Ondansetron HCl (Zofran Inj) 4 mg Q6H PRN IV NAUSEA AND/OR VOMITING; Start 03/19 at 15:00 Acetaminophen (Tylenol Tab) 650 mg Q6H PRN PO PAIN LEVEL 1-3 OR FEVER Last administered on 09/13/16 08:13; Admin Dose 650 MG; Start 09/12/16 at 15:00 Acetaminophen/ Hydrocodone Bitart ([place] (5/325)) 2 tab Q6H PRN PO SEVERE PAIN LEVEL 7-10; Start 09/12/16 at 15:00 Morphine Sulfate (morphine) 2 mg Q4H PRN IV SEVERE PAIN LEVEL 7-10; Start 09/12 at 15:00 Famotidine 20 mg 20 mg Q24H PO Last administered on 09/12/16 22:41; Admin Dose 20 MG; Start 09/12/16 at 21:00 Ceftriaxone Sodium (Rocephin) 50 ml @ 100 mls/hr Q24H IVPB Last administered on 09/13/16 12:10; Admin Dose 100 MLS/HR; Start 09/13/16 at 12:00 Hydralazine HCl (Apresoline) 10 mg Q6H PRN IV SBP>160 Last administered on 09/12 22:41; Admin Dose 10 MG; Start 09/12/16 at 15:00 Insulin Aspart (Novolog Insulin Pen) (Adult SC Insulin - Mild Algorithm)... Q4 SC Last administered on 09/13/16 12:09; Admin Dose 3 UNIT; Start 09/12/16 at 17:00 Miscellaneous Information 1 ea NOTE XX ; Start 09/12/16 at 15:00 Glucose (Glutose) 15 gm Q15M PRN PO DECREASED GLUCOSE; Start 09/12/16 at 15:00 Glucose (Glutose) 22.5 gm Q15M PRN PO DECREASED GLUCOSE; Start 09/12/16 at 15: 00 Dextrose (D50w Syringe) 25 ml Q15M PRN IV DECREASED GLUCOSE; Start 09/12/16 at 15:00 Dextrose (D50w Syringe) 50 ml Q15M PRN IV DECREASED GLUCOSE; Start 09/12/16 at 15:00 Glucagon (Glucagen) 1 mg Q15M PRN IM DECREASED GLUCOSE; Start 09/12/16 at 15:00 Glucose (Glutose) 15 gm Q15M PRN BUCCAL DECREASED GLUCOSE; Start 09/12/16 at 15 :00 Procedures Procedures PROCEDURE: X-ray cystogram in surgery CLINICAL INDICATION: Stent placement TECHNIQUE: 2 intraoperative images were performed. 18.9 seconds of fluoroscopy time was utilized. COMPARISON: CT abdomen and pelvis without contrast of 09/11/2016 FINDINGS: On the first image there is the appearance of a calculus in right renal pelvis. On the second image a ureteral stent is seen extending adjacent to the calculus and superior to the calculus in right upper renal collecting system. IMPRESSION: On the first image there is the appearance of a calculus in right renal pelvis. On the second image a ureteral stent is seen extending adjacent to the calculus and superior to the calculus in right upper renal collecting system. Please see procedure report. RPTAT: HJES .Dickson Becker MD, MD Date Time Electronically viewed and signed by .Dickson Becker MD, MD on 09/12/2016 23:05 VERONICA BOLIVAR MD Sep 13, 2016 12:18
--- NOTE | 2016-09-13 12:35 | PN ---
Date/Time of Note Date/Time of Note DATE: 09/13/16 TIME: 12:35 Assessment/Plan VTE Prophylaxis VTE Prophylaxis Intervention: SCD's Lines/Catheters IV Catheter Type (from Nrs): Peripheral IV Assessment/Plan Chief Complaint/Hosp Course 1. Ureterolithiasis with 2 large obstructing ureteropelvic junction stones. Status post placement of a right sided JJ stent by urology on 09/12/2016. Continue pain control. Continue IV hydration. Continue empiric antibiotics. 2. Acute kidney injury, most probably post-obstructive renal failure. The patient also has a atrophic left-sided kidney. The patient probably has underlying chronic kidney disease. The patient being followed by nephrology. The patient will be adequately hydrated. We will avoid any nephrotoxic medications. The patient's BUN and creatinine will be monitored closely. 3. Type 2 diabetes mellitus. Hemoglobin A1c 6.3. The patient will be continued on sliding scale insulin along with basal insulin and pre-meal insulin. Will avoid biguanides because of renal failure. 4. Obesity. BMI of 35.9 kilograms per meter squared. Dietary consult will be obtained. Weight reduction will be advised. 5. Dyslipidemia. Low-cholesterol diet will be reinforced. 6. Fluids, electrolytes, and nutrition. Carbohydrate controlled, low- cholesterol diet. 7. DVT prophylaxis. Bilateral sequential compression devices. 8. Gastrointestinal prophylaxis. Histamine 2 receptor blockers. 9. Plan. Continue pain control. Continue IV hydration. Monitor BUN and creatinine. Case discussed with Dr. Bowles. Plan of care was explained to the patient's was at the bedside. Problems: Subjective 24 Hr Interval Summary Free Text/Dictation Right flank pain improved. Had a febrile episode last night. Exam/Review of Systems Vital Signs Vitals Vital Signs Date Time Temp Pulse Resp B/P Pulse Ox O2 Delivery O2 Flow Rate FiO2 09/13/16 07:30 98.1 82 18 158/90 96 09/12/16 22:00 Nasal Cannula 2.0 Intake and Output 09/12/16 09/12/16 09/13/16 15:00 23:00 07:00 Intake Total 1200 ml 1000 ml Output Total 4 ml Balance 1196 ml 1000 ml Exam VITAL SIGNS: Temperature 98.3, pulse rate 83, respiratory rate 20, blood pressure 151/94, oxygen saturation 99% on room air. GENERAL: This is an obese male patient lying in bed in no apparent distress. HEENT: Head normocephalic and atraumatic. Eyes: Anicteric sclerae. Conjunctivae clear. Nasal septum is midline. Oral mucosa is dry. NECK: Supple. No JVD noticed. RESPIRATORY: Bilaterally clear to auscultation. No adventitious breath sounds. No use of accessory muscles of respiration. CARDIAC: Regular rate and rhythm. S1 and S2 heard. ABDOMEN: Soft, nontender. Bowel sounds hypoactive in all 4 quadrants. GENITOURINARY: Minimal right CVA tenderness. EXTREMITIES: No cyanosis, no clubbing, no edema. Peripheral pulses are palpable. NEUROLOGIC: The patient is awake, alert, and oriented. Cranial nerves are grossly intact. Results Result Diagram: 09/13/16 0455 09/13/16 0455 Results 24 hrs Laboratory Tests Test 09/12/16 15:05 09/12/16 16:42 09/12/16 22:38 09/12/16 23:38 Urine Color LT. YELLOW Urine Clarity CLEAR Urine pH 6.0 Urine Specific [place] 1.010 Urine Ketones NEGATIVE Urine Nitrite NEGATIVE Urine Bilirubin NEGATIVE Urine Urobilinogen 0.2 E.U./dL Urine Leukocyte Esterase NEGATIVE Urine Microscopic RBC 0-2 Urine Microscopic WBC 0-2 Urine Epithelial Cells OCCASIONAL Urine Hemoglobin TRACE Urine Glucose NEGATIVE Urine Total Protein TRACE Bedside Glucose 137 150 195 Test 09/13/16 01:07 09/13/16 04:55 09/13/16 05:03 09/13/16 08:12 Bedside Glucose 221 H 149 165 White Blood Count 10.5 Red Blood Count 5.01 Hemoglobin 14.4 Hematocrit 41.6 L Mean Corpuscular Volume 83.0 Mean Corpuscular Hemoglobin 28.7 L Mean Corpuscular Hemoglobin Concent 34.6 Red Cell Distribution Width 12.7 Platelet Count 174 Mean Platelet Volume 10.6 H Neutrophils % 80.1 H Lymphocytes % 10.8 L Monocytes % 8.0 Eosinophils % 0.4 Basophils % 0.2 Nucleated Red Blood Cells % 0.0 Neutrophils # 8.5 H Lymphocytes # 1.1 Monocytes # 0.8 Eosinophils # 0.0 Basophils # 0.0 Nucleated Red Blood Cells # 0.0 Prothrombin Time 14.1 Prothrombin Time Ratio 1.1 INR International Normalized Ratio 1.09 Activated Partial Thromboplast Time 36.0 H Sodium Level 142 Potassium Level 3.8 Chloride Level 108 Carbon Dioxide Level 22 Anion Gap 16 Blood Urea Nitrogen 39 H Creatinine 3.90 H Glucose Level 144 # Calcium Level 9.3 Phosphorus Level 4.0 Magnesium Level 1.9 Total Bilirubin 0.5 Direct Bilirubin 0.00 Indirect Bilirubin 0.5 Aspartate Amino Transf (AST/SGOT) 13 L Alanine Aminotransferase (ALT/SGPT) 34 Alkaline Phosphatase 63 Total Protein 7.1 Albumin 4.4 Globulin 2.70 Albumin/Globulin Ratio 1.62 Triglycerides Level 126 Cholesterol Level 213 H LDL Cholesterol, Calculated 150 HDL Cholesterol 38 Cholesterol/HDL Ratio 5.6 Test 09/13/16 12:05 Bedside Glucose 237 H Medications Medications Current Medications Sodium Chloride (NS) 1,000 ml @ 125 mls/hr Q8H IV Last administered on 12:11; Admin Dose 125 MLS/HR; Start 09/12/16 at 14:31 Ondansetron HCl (Zofran Inj) 4 mg Q6H PRN IV NAUSEA AND/OR VOMITING; Start 03/19 at 15:00 Acetaminophen (Tylenol Tab) 650 mg Q6H PRN PO PAIN LEVEL 1-3 OR FEVER Last administered on 09/13/16 08:13; Admin Dose 650 MG; Start 09/12/16 at 15:00 Acetaminophen/ Hydrocodone Bitart ([place] (5/325)) 2 tab Q6H PRN PO SEVERE PAIN LEVEL 7-10; Start 09/12/16 at 15:00 Morphine Sulfate (morphine) 2 mg Q4H PRN IV SEVERE PAIN LEVEL 7-10; Start 09/12 at 15:00 Famotidine 20 mg 20 mg Q24H PO Last administered on 09/12/16 22:41; Admin Dose 20 MG; Start 09/12/16 at 21:00 Ceftriaxone Sodium (Rocephin) 50 ml @ 100 mls/hr Q24H IVPB Last administered on 09/13/16 12:10; Admin Dose 100 MLS/HR; Start 09/13/16 at 12:00 Hydralazine HCl (Apresoline) 10 mg Q6H PRN IV SBP>160 Last administered on 09/12 22:41; Admin Dose 10 MG; Start 09/12/16 at 15:00 Insulin Aspart (Novolog Insulin Pen) (Adult SC Insulin - Mild Algorithm)... Q4 SC Last administered on 09/13/16 12:09; Admin Dose 3 UNIT; Start 09/12/16 at 17:00 Miscellaneous Information 1 ea NOTE XX ; Start 09/12/16 at 15:00 Glucose (Glutose) 15 gm Q15M PRN PO DECREASED GLUCOSE; Start 09/12/16 at 15:00 Glucose (Glutose) 22.5 gm Q15M PRN PO DECREASED GLUCOSE; Start 09/12/16 at 15: 00 Dextrose (D50w Syringe) 25 ml Q15M PRN IV DECREASED GLUCOSE; Start 09/12/16 at 15:00 Dextrose (D50w Syringe) 50 ml Q15M PRN IV DECREASED GLUCOSE; Start 09/12/16 at 15:00 Glucagon (Glucagen) 1 mg Q15M PRN IM DECREASED GLUCOSE; Start 09/12/16 at 15:00 Glucose (Glutose) 15 gm Q15M PRN BUCCAL DECREASED GLUCOSE; Start 09/12/16 at 15 :00 HELENE LIANG NP Sep 13, 2016 12:35
--- NOTE | 2016-09-13 17:00 | DS ---
DATE OF ADMISSION: 09/12/2016 DATE OF DISCHARGE: 09/13/2016 FINAL DIAGNOSES: 1. Ureterolithiasis with 2 large obstructing ureteropelvic junction stones status post placement of a right-sided JJ stent by urology on 09/12/2016. 2. Acute on chronic kidney injury. 3. Type 2 diabetes. 4. Obesity. 5. Dyslipidemia. CONSULTATIONS: 1. Dr. Adriel Sy, nephrology. 2. Dr. Abdulaizz Lopez, urology. HOSPITAL COURSE: This is a 46-year-old male with past medical history of type 2 diabetes mellitus a nd recurrent urolithiasis who came to the emergency room with chief complaint of bilateral flank sammy n. The patient was seen in the emergency room at [facility] on 09/11/2006 because of similar complaints of right flank pain. On 09/11/2016, the patient underwent a CT scan of the a bdomen and pelvis that showed acute moderate right collecting system dilatation with right perinephr ic stranding due to 2 large obstructing right ureteropelvic junction stones. Consequently, the agustín ent was discharged home on analgesics to be followed up with outpatient urology. The patient was di scharged home on Flomax and ciprofloxacin. The case was discussed with Dr. Lopez, the urologist, on 09/11/2016 by the ER doctor. The patient could not handle his pain, which was getting worse at home ; hence, the patient came back to the emergency room on 09/12/2016. In the emergency room, the agustín ent was noticed to have a BUN and creatinine of 38 and 4.20 respectively, increased from 24 and 1.73 respectively on 09/11/2016. The patient was complaining of dark colored urine. The patient was co mplaining of flank pain that was radiating to his right groin. He denied any fevers or chills. Pro vided the patient's history of present illness, a clinical decision was made to admit the patient to inpatient setting to have him further evaluated. The patient was admitted to inpatient medical/surgical floor. He was started on adequate analgesics . He was started on IV fluids. The patient was started on empiric antibiotics. A nephrology consu lt and urology consult were called. The patient underwent a right-sided ureteral JJ stent placement by urology on 09/12/2016. The patient's renal function improved status post JJ stent placement. T he patient most probably had chronic kidney disease as evidenced by abdominal imaging showing atroph ic left-sided kidney. The patient had worsening renal function on 09/12/2016. This was thought to be secondary to urinary obstruction as well as chronic kidney disease. Nephrology was following the patient. Nephrotoxic drugs were used with caution. The patient was maintained on IV hydration. T he patient had no evidence of any fluid overload or hypouremia that necessitated any ultrafiltration . The patient has underlying type 2 diabetes mellitus. The patient was noticed to have a hemoglobi n A1c of 6.3. He was maintained on sliding scale insulin along with basal insulin and premeal insul in. Biguanides were avoided because of renal failure. The patient was noticed to have a BMI of 35. 9 kg/m2. The patient was seen by a registered dietitian, and weight reduction was advised. The pat ient was also noticed to have dyslipidemia. The patient was instructed on a low cholesterol diet. The patient was improving clinically. Meanwhile, the patient had to be transferred to a [facility] because of insurance reasons for further management. The patient is not stable to be discha rged home. The patient needs further inpatient care including IV hydration, IV antibiotic therapy, and close followup by urology and nephrology. DISCHARGE DISPOSITION AND PLAN: The patient will be discharged to [facility] for further care. The patient will continue the medications as per medication list which are listed below. The patient will follow a carbohydrate controlled low cholesterol diet. The res t of the management will be deferred to the providers at the receiving facility. CONDITION AT DISCHARGE: Stable. DISCHARGE MEDICATIONS 1. Lantus insulin 10 units subcutaneously at bedtime. 2. NovoLog insulin mild dose algorithm a.c. and at bedtime. 3. NovoLog insulin 3 units subcutaneously before meals. 4. Ceftriaxone 1 gram IV piggyback q. 24 hours. 5. Pepcid 20 mg p.o. 24 hours. 6. [place] 5/325, two tablets p.o. q. 6 hours p.r.n. pain. 7. Morphine 2 mg q. 4 hours p.r.n. pain. 8. Hydralazine 10 mg IV q. 6 hours p.r.n. SBP greater than 160. 9. NS at 125 mL per hour. PERTINENT LABORATORY AND DIAGNOSTIC DATA AND PROCEDURES: 1. Placement of a right-sided JJ stent on 09/12/2016. 2. CT scan of the abdomen and pelvis on 09/11/2016 showing acute moderate right collecting system d ilatation with right perinephritic stranding due to 2 large obstructing right ureteropelvic junction stones, measuring 2 x 2 x 1.2 cm and 11 x 11 x 11 mm. 3. Urine culture. No growth after 24 hours. 4. Latest CBC: WBC 10.5, hemoglobin 14.4, hematocrit 41.6, platelet count 174. 5. Latest BMP: Sodium 142, potassium 3.8, chloride 108, carbon dioxide 22, anion gap 16, BUN 39, c reatinine 3.90, glucose 144, calcium 9.3, phosphorus 4.0, magnesium 1.9. 6. Hemoglobin A1c of 6.3. 7. Fasting lipid panel: Triglycerides 126, total cholesterol 213, LDL 150, HDL 38. At this time, I would like to thank all the consultants for seeing the patient, doing the necessary procedures, and providing clinical recommendations. The case and management of this patient was fully discussed with Dr. Cedillo. Approximately 45 minutes was spent on the transfer process of this patient. Dictated By: HELENE LIANG VOCATIONAL EDUCATION TEACHER for KARL CEDILLO MD, AM/NTS Conf#: [id number] DID#: [id number]
[2016-09-13] MEDS: INSULIN ASPART [NOVOLOG] 3 ML PEN SC SCH ×3 (17:21→21:56)
--- NOTE | 2016-09-13 19:57 | PN ---
Date/Time of Note Date/Time of Note DATE: 09/13/16 TIME: 19:55 Assessment/Plan VTE Prophylaxis VTE Prophylaxis Intervention: ambulation Lines/Catheters IV [facility] Peripheral IV Assessment/Plan Chief Complaint/Hosp Course Thank you for request for evaluation Rita presented to the emergency room twice within 48 hours. He has 2 sizable stones at the right kidney right UPJ each over a centimeter. He initially presented with pain and then came back again with fever and overall feeling poorly. He also has renal insufficiency with creatinine of 4.[address] scan which shows the above findings it also shows an atrophic left kidney with the distal large sizable ureteral stone I suspect he had a unrecognized chronic left ureteral obstruction that resulted in atrophy of his left kidney. He says he has had stones in the past but never stone surgery he says he has always passed the stones. He says he has intermittent hematuria since February. He says he recently had a CT scan and all of his doctors told him that everything was okay Problems: Subjective 24 Hr Interval Summary Free Text/Dictation Urology feels much better afebrile no more sweats and pain wbc improved renal function will improve needs urologic fu to have stone and stent removed they are aware and have already been making arrangements for fu he can go home any time from a urologic perspective--on antibiotics Exam/Review of Systems Vital Signs Vitals Vital Signs Date Time Temp Pulse Resp B/P Pulse Ox O2 Delivery O2 Flow Rate FiO2 09/13/16 07:30 98.1 82 18 158/90 96 09/12/16 22:00 Nasal Cannula 2.0 Intake and Output 09/12/16 09/12/16 09/13/16 14:59 22:59 06:59 Intake Total 1200 ml 1000 ml Output Total 4 ml Balance 1196 ml 1000 ml Results Result Diagram: 09/13/16 0455 09/13/16 0455 Results 24 hrs Laboratory Tests Test 09/12/16 22:38 09/12/16 23:38 09/13/16 01:07 09/13/16 04:55 Bedside Glucose 150 195 221 H White Blood Count 10.5 Red Blood Count 5.01 Hemoglobin 14.4 Hematocrit 41.6 L Mean Corpuscular Volume 83.0 Mean Corpuscular Hemoglobin 28.7 L Mean Corpuscular Hemoglobin Concent 34.6 Red Cell Distribution Width 12.7 Platelet Count 174 Mean Platelet Volume 10.6 H Neutrophils % 80.1 H Lymphocytes % 10.8 L Monocytes % 8.0 Eosinophils % 0.4 Basophils % 0.2 Nucleated Red Blood Cells % 0.0 Neutrophils # 8.5 H Lymphocytes # 1.1 Monocytes # 0.8 Eosinophils # 0.0 Basophils # 0.0 Nucleated Red Blood Cells # 0.0 Prothrombin Time 14.1 Prothrombin Time Ratio 1.1 INR International Normalized Ratio 1.09 Activated Partial Thromboplast Time 36.0 H Sodium Level 142 Potassium Level 3.8 Chloride Level 108 Carbon Dioxide Level 22 Anion Gap 16 Blood Urea Nitrogen 39 H Creatinine 3.90 H Glucose Level 144 # Calcium Level 9.3 Phosphorus Level 4.0 Magnesium Level 1.9 Total Bilirubin 0.5 Direct Bilirubin 0.00 Indirect Bilirubin 0.5 Aspartate Amino Transf (AST/SGOT) 13 L Alanine Aminotransferase (ALT/SGPT) 34 Alkaline Phosphatase 63 Total Protein 7.1 Albumin 4.4 Globulin 2.70 Albumin/Globulin Ratio 1.62 Triglycerides Level 126 Cholesterol Level 213 H LDL Cholesterol, Calculated 150 HDL Cholesterol 38 Cholesterol/HDL Ratio 5.6 Test 09/13/16 05:03 09/13/16 08:12 09/13/16 12:05 09/13/16 17:19 Bedside Glucose 149 165 237 H 117 Medications Medications Current Medications Sodium Chloride (NS) 1,000 ml @ 125 mls/hr Q8H IV Last administered on 12:11; Admin Dose 125 MLS/HR; Start 09/12/16 at 14:31 Ondansetron HCl (Zofran Inj) 4 mg Q6H PRN IV NAUSEA AND/OR VOMITING; Start 03/19 at 15:00 Acetaminophen (Tylenol Tab) 650 mg Q6H PRN PO PAIN LEVEL 1-3 OR FEVER Last administered on 09/13/16 08:13; Admin Dose 650 MG; Start 09/12/16 at 15:00 Acetaminophen/ Hydrocodone Bitart ([place] (5/325)) 2 tab Q6H PRN PO SEVERE PAIN LEVEL 7-10; Start 09/12/16 at 15:00 Morphine Sulfate (morphine) 2 mg Q4H PRN IV SEVERE PAIN LEVEL 7-10; Start 09/12 at 15:00 Famotidine 20 mg 20 mg Q24H PO Last administered on 09/12/16 22:41; Admin Dose 20 MG; Start 09/12/16 at 21:00 Ceftriaxone Sodium (Rocephin) 50 ml @ 100 mls/hr Q24H IVPB Last administered on 09/13/16 12:10; Admin Dose 100 MLS/HR; Start 09/13/16 at 12:00 Hydralazine HCl (Apresoline) 10 mg Q6H PRN IV SBP>160 Last administered on 09/12 22:41; Admin Dose 10 MG; Start 09/12/16 at 15:00 Miscellaneous Information 1 ea NOTE XX ; Start 09/12/16 at 15:00 Glucose (Glutose) 15 gm Q15M PRN PO DECREASED GLUCOSE; Start 09/12/16 at 15:00 Glucose (Glutose) 22.5 gm Q15M PRN PO DECREASED GLUCOSE; Start 09/12/16 at 15: 00 Dextrose (D50w Syringe) 25 ml Q15M PRN IV DECREASED GLUCOSE; Start 09/12/16 at 15:00 Dextrose (D50w Syringe) 50 ml Q15M PRN IV DECREASED GLUCOSE; Start 09/12/16 at 15:00 Glucagon (Glucagen) 1 mg Q15M PRN IM DECREASED GLUCOSE; Start 09/12/16 at 15:00 Glucose (Glutose) 15 gm Q15M PRN BUCCAL DECREASED GLUCOSE; Start 09/12/16 at 15 :00 Insulin Glargine (Lantus) 10 unit DAILY@20 SC ; Start 09/13/16 at 20:00 Diagnostic Test (Pha) (Accu-Chek) 1 ea 02 XX ; Start 09/14/16 at 02:00 LUCY KUHN MD Sep 13, 2016 19:57
[2016-09-13 20:12] VITALS: BP 143/93; RESP 18
[2016-09-13] MEDS: INSULIN GLARGINE [LANtus] 3 ML PEN SC SCH (21:55)
[2016-09-13] MEDS: FAMOTIDINE 20 MG TAB PO SCH (22:02)
[2016-09-14] MEDS ORDERED: ACCU-CHEK XX SCH (02:00)
[2016-09-14] MEDS: ACETAMINOPHEN 325 MG TAB PO PRN (02:18)
[2016-09-14 06:02] LABS: ADD SCAN DIFF NO
[2016-09-14 06:06] LABS: BASOPHILS % 0.5 % (0.0-2.0); EOSINOPHILS # 0.2 10^3/ul (0.0-0.5); EOSINOPHILS % 2.4 % (0.0-7.0); HEMATOCRIT 39.9 % (42.0-52.0); HEMOGLOBIN 13.6 g/dl (14.0-18.0); LYMPHOCYTES # 1.9 10^3/ul (0.8-2.9); LYMPHOCYTES % 21.3 % (15.0-51.0); MEAN CORPUSCULAR HEMOGLOBIN 28.8 pg (29.0-33.0); MEAN CORPUSCULAR HGB CONC 34.1 g/dl (32.0-37.0); MEAN CORPUSCULAR VOLUME 84.5 fl (82.0-101.0); MEAN PLATELET VOLUME 10.7 fl (7.4-10.4); MONOCYTE # 0.7 10^3/ul (0.3-0.9); MONOCYTES % 8.5 % (0.0-11.0); NEUTROPHIL # 5.8 10^3/ul (1.6-7.5); PLATELET COUNT 167 10^3/UL (140-415); RED BLOOD COUNT 4.72 10^6/ul (4.70-6.10); RED CELL DISTRIBUTION WIDTH 12.9 % (11.5-14.5); WHITE BLOOD COUNT 8.7 10^3/ul (4.8-10.8)
[2016-09-14] MEDS: SOD CHLORIDE 0.9% 1,000 ML IV SCH ×3 (06:28→16:00)
[2016-09-14 06:55] LABS: CALCIUM 8.8 mg/dl (8.4-10.2); CREATININE 2.53 mg/dl (0.61-1.24); POTASSIUM 3.7 mmol/L (3.5-5.1)
[2016-09-14 06:58] LABS: PHOSPHORUS 3.8 mg/dl (2.5-4.9)
[2016-09-14] MEDS: INSULIN ASPART [NOVOLOG] 3 ML PEN SC SCH ×6 (08:00→17:26)
[2016-09-14 08:08] VITALS: BP 155/83; RESP 18
--- NOTE | 2016-09-14 11:18 | DS ---
Date/Time of Note Date/Time of Note DATE: 09/14/16 TIME: 11:13 Discharge Summary Admission/Discharge Info Admit Date/Time Sep 12, 2016 at 13:29 Discharge Date/Time Final Diagnosis 1. Ureterolithiasis with 2 large obstructing ureteropelvic junction stones status post placement of a right-sided JJ stent by urology on 09/12/2016. 2. Acute on chronic kidney injury likely secondary to #1. 3. Type 2 diabetes. 4. Obesity. 5. Dyslipidemia. Patient Condition: Stable Hospital Course This is a 46-year-old male with history of type 2 diabetes, recurrent urolithiasis [place] [facility] [place] of [place] pain. Patient of note was seen in the ER on September 11, [address] scan of his abdomen that did show acute moderate right collecting system dilation with right perinephric stranding due to 2 large obstructing right ureteropelvic junction stones. Patient was provided with analgesics and IV fluids. He was also placed on Flomax. His urologist is Dr. Lopez. He was initially sent home due to his worsening pain he came back on September 12, 2016. Was noted with acute kidney injury with creatinine of 4.2 and a BUN of 38. Patient did undergo right-sided ureteral JJ stent placement on September 12, 2016. His renal function did start to improve after procedure. Is also seen by general accounting manager for management of his renal insufficiency. We did avoid nephrotoxic medications. Is otherwise optimized medically and resumed on insulin for his diabetes. He was noted to be obese and was advised for weight reduction. For his dyslipidemia he was continued on a low-fat low-cholesterol diet. Due to insurance issue patient was to be transferred to different hospital. Due to patient's medical issues he still required inpatient monitoring as well as antibiotic therapy and IV hydration and follow-up with urologist and general accounting manager. Case management was involved. Once bed was available there was plan to be transferred to accepting hospital. There was plan for patient be transferred to [facility] for further management care. On the day of discharge patient was in stable condition Discussed plan of care with Dr. Bowles Discharge process 40 minute Home Meds Discontinued Reported Medications Sitagliptin Phos/Metformin HCl (Janumet 50-1,000 mg Tablet) 1 Each Tablet, 1 EACH PO BID WITH MEALS, TAB 09/11/16 Discontinued Scripts Ciprofloxacin Hcl* (Ciprofloxacin Hcl*) 500 Mg Tablet, 500 MG PO BID for 7 Days , TAB Prov:HENOK ÁLVAREZ DO 09/11/16 Tamsulosin Hcl* (Flomax*) 0.4 Mg Cap.er.24h, 0.4 MG PO BID, #30 CAP Prov:HENOK ÁLVAREZ DO 09/11/16 Hydrocodone/Acetaminophen ([place] 10-325 Tablet) 1 Each Tablet, 1 TAB PO Q6H Y for PAIN, #30 TAB Prov:HENOK ÁLVAREZ DO 09/11/16 Follow-up Plan CONDITION Patient Condition: Stable HOME CARE INSTRUCTIONS: Special Diet: Carbohydrate controlled OTHER ORDERS: Other Orders: 1. Continue medications as per medication reconciliation. 2. Continue IV hydration. 3. Continue carbohydrate controlled diet. 4. Further management and care per [facility] Primary Care Provider Luis Stiles Pending Labs Laboratory Tests Test 09/13/16 12:05 09/13/16 17:19 09/13/16 21:52 09/14/16 02:15 Bedside Glucose 237mg/dL (70-220) 117mg/dL (70-220) 222mg/dL (70-220) 99mg/dL (70-220) Test 09/14/16 04:45 09/14/16 08:10 White Blood Count 8.710^3/ul (4.8-10.8) Red Blood Count 4.7210^6/ul (4.70-6.10) Hemoglobin 13.6g/dl (14.0-18.0) Hematocrit 39.9% (42.0-52.0) Mean Corpuscular Volume 84.5fl (82.0-101.0) Mean Corpuscular Hemoglobin 28.8pg (29.0-33.0) Mean Corpuscular Hemoglobin Concent 34.1g/dl (32.0-37.0) Red Cell Distribution Width 12.9% (11.5-14.5) Platelet Count 44954^3/UL (140-415) Mean Platelet Volume 10.7fl (7.4-10.4) Neutrophils % 67.0% (39.0-77.0) Lymphocytes % 21.3% (15.0-51.0) Monocytes % 8.5% (0.0-11.0) Eosinophils % 2.4% (0.0-7.0) Basophils % 0.5% (0.0-2.0) Nucleated Red Blood Cells % 0.0/100WBC (0.0-0.0) Neutrophils # 5.810^3/ul (1.6-7.5) Lymphocytes # 1.910^3/ul (0.8-2.9) Monocytes # 0.710^3/ul (0.3-0.9) Eosinophils # 0.210^3/ul (0.0-0.5) Basophils # 0.010^3/ul (0.0-0.1) Nucleated Red Blood Cells # 0.010^3/ul (0.0-0.0) Sodium Level 144mmol/L (135-144) Potassium Level 3.7mmol/L (3.5-5.1) Chloride Level 110mmol/L (97-110) Carbon Dioxide Level 24mmol/L (21-31) Anion Gap 14 (8-16) Blood Urea Nitrogen 33mg/dl (7-20) Creatinine 2.53mg/dl (0.61-1.24) Glucose Level 119mg/dl (70-220) Calcium Level 8.8mg/dl (8.4-10.2) Phosphorus Level 3.8mg/dl (2.5-4.9) Magnesium Level 2.0mg/dl (1.7-2.5) Bedside Glucose 132mg/dL (70-220) HOA VIERA Sep 14, 2016 11:18
[2016-09-14] MEDS: CEFTRIAXONE 2 GM/50 ML (PMX) 50 ML IVPB SCH (11:50)
--- NOTE | 2016-09-14 13:13 | CONS ---
Date/Time of Note Date/Time of Note DATE: 09/14/16 TIME: 13:13 Assessment/Plan Assessment/Plan Chief Complaint/Hosp Course 46-year-old male with history of type 2 diabetes mellitus and recurrent urolithiasis who presented to the emergency room at [facility] with chief complaint of bilateral flank pain. The patient was seen in the emergency room at [facility] on 09/11/2016 because of similar complaints of right flank pain. On 09/11/2006, the patient underwent a CT scan of the abdomen and pelvis that showed acute moderate right collecting system dilatation with right perinephric stranding due to 2 large obstructing right UPJ stone, subsequently patient was discharged home on analgesics to be followed up with outpatient urology and Rx for Flomax and ciprofloxacin. However despite Rx and Urology consultation pt re-presented due to persistent intolerable pain. In the emergency room, the patient was noticed to have BUN and creatinine of 38 and 4.20 respectively, increased from 24 and 1.73 respectively on 09/11/2016. The patient was complaining of dark colored urine. The patient was complaining of flank pain that was radiating to his right groin. The patient denied any fevers or chills. He was started with IV Rocephin and IV analgesics in the emergency room. Urology was consulted by the ER physician. Nephrology consultation also obtained for LAZARA. Patient has been seen by Dr Lopez and is S/p Right sided stent placement cystoscopy. Pain has significantly improved and patient has voided several times. Problems: Consultation Date/Type/Reason Admit Date/Time Sep 12, 2016 at 13:29 Initial Consult Date 09/12/16 Type of Consultation: Renal Referring Provider: HELENE LIANG [employer] Exam/Review of Systems Vital Signs Vitals Vital Signs Date Time Temp Pulse Resp B/P Pulse Ox O2 Delivery O2 Flow Rate FiO2 09/14/16 08:08 98.3 75 18 155/83 98 09/12/16 22:00 Nasal Cannula 2.0 Intake and Output 09/13/16 09/13/16 09/14/16 15:00 23:00 07:00 Intake Total 1000 ml 2000 ml 1550 ml Output Total 700 ml 850 ml Balance 1000 ml 1300 ml 700 ml Results Result Diagram: 09/14/16 0445 09/14/16 0445 Results 24 hrs Laboratory Tests Test 09/13/16 17:19 09/13/16 21:52 09/14/16 02:15 09/14/16 04:45 Bedside Glucose 117 222 H 99 White Blood Count 8.7 Red Blood Count 4.72 Hemoglobin 13.6 L Hematocrit 39.9 L Mean Corpuscular Volume 84.5 Mean Corpuscular Hemoglobin 28.8 L Mean Corpuscular Hemoglobin Concent 34.1 Red Cell Distribution Width 12.9 Platelet Count 167 Mean Platelet Volume 10.7 H Neutrophils % 67.0 Lymphocytes % 21.3 Monocytes % 8.5 Eosinophils % 2.4 Basophils % 0.5 Nucleated Red Blood Cells % 0.0 Neutrophils # 5.8 Lymphocytes # 1.9 Monocytes # 0.7 Eosinophils # 0.2 Basophils # 0.0 Nucleated Red Blood Cells # 0.0 Sodium Level 144 Potassium Level 3.7 Chloride Level 110 Carbon Dioxide Level 24 Anion Gap 14 Blood Urea Nitrogen 33 H Creatinine 2.53 #H Glucose Level 119 Calcium Level 8.8 Phosphorus Level 3.8 Magnesium Level 2.0 Test 09/14/16 08:10 09/14/16 11:44 Bedside Glucose 132 203 Medications Medications Current Medications Sodium Chloride (NS) 1,000 ml @ 125 mls/hr Q8H IV Last administered on 06:28; Admin Dose 125 MLS/HR; Start 09/12/16 at 14:31 Ondansetron HCl (Zofran Inj) 4 mg Q6H PRN IV NAUSEA AND/OR VOMITING; Start 03/19 at 15:00 Acetaminophen (Tylenol Tab) 650 mg Q6H PRN PO PAIN LEVEL 1-3 OR FEVER Last administered on 09/14/16 02:18; Admin Dose 650 MG; Start 09/12/16 at 15:00 Acetaminophen/ Hydrocodone Bitart ([place] (5/325)) 2 tab Q6H PRN PO SEVERE PAIN LEVEL 7-10; Start 09/12/16 at 15:00 Morphine Sulfate (morphine) 2 mg Q4H PRN IV SEVERE PAIN LEVEL 7-10; Start 09/12 at 15:00 Famotidine 20 mg 20 mg Q24H PO Last administered on 09/13/16 22:02; Admin Dose 20 MG; Start 09/12/16 at 21:00 Ceftriaxone Sodium (Rocephin) 50 ml @ 100 mls/hr Q24H IVPB Last administered on 09/14/16 11:50; Admin Dose 100 MLS/HR; Start 09/13/16 at 12:00 Hydralazine HCl (Apresoline) 10 mg Q6H PRN IV SBP>160 Last administered on 09/12 22:41; Admin Dose 10 MG; Start 09/12/16 at 15:00 Miscellaneous Information 1 ea NOTE XX ; Start 09/12/16 at 15:00 Glucose (Glutose) 15 gm Q15M PRN PO DECREASED GLUCOSE; Start 09/12/16 at 15:00 Glucose (Glutose) 22.5 gm Q15M PRN PO DECREASED GLUCOSE; Start 09/12/16 at 15: 00 Dextrose (D50w Syringe) 25 ml Q15M PRN IV DECREASED GLUCOSE; Start 09/12/16 at 15:00 Dextrose (D50w Syringe) 50 ml Q15M PRN IV DECREASED GLUCOSE; Start 09/12/16 at 15:00 Glucagon (Glucagen) 1 mg Q15M PRN IM DECREASED GLUCOSE; Start 09/12/16 at 15:00 Glucose (Glutose) 15 gm Q15M PRN BUCCAL DECREASED GLUCOSE; Start 09/12/16 at 15 :00 Insulin Glargine (Lantus) 10 unit DAILY@20 SC Last administered on 09/13/16 21 :55; Admin Dose 10 UNIT; Start 09/13/16 at 20:00 Diagnostic Test (Pha) (Accu-Chek) 1 ea 02 XX ; Start 09/14/16 at 02:00 VERONICA BOLIVAR MD Sep 14, 2016 13:13
[2016-09-14 20:15] VITALS: BP 151/95; RESP 18
[2016-09-14] MEDS: FAMOTIDINE 20 MG TAB PO SCH (20:37)
[2016-09-14] MEDS: INSULIN GLARGINE [LANtus] 3 ML PEN SC SCH (20:38)
[2016-09-14 21:00] VITALS: BP 148/83; PULSE 98; RESP 18
== END 2016-09-14 21:52 | disposition short-term general hospital (02) | DRG 694 ==
LOC: FTE 09:16 → PP2 13:29
PROVIDERS: ADMIT Family Medicine; ATTEND Family Medicine
PROC: 0T768DZ Dilation of Right Ureter with Intraluminal Device, Via Natural or Artificial Opening Endoscopic (ICD-10-PCS; principal; 2016-09-12 19:00)
DX: N13.2 Hydronephrosis with renal and ureteral calculous obstruction (principal); N17.9 Acute kidney failure, unspecified; E13.22 Other specified diabetes mellitus with diabetic chronic kidney disease; E78.5 Hyperlipidemia, unspecified; R03.0 Elevated blood-pressure reading, without diagnosis of hypertension; I12.9 Hypertensive chronic kidney disease with stage 1 through stage 4 chronic kidney disease, or unspecified chronic kidney disease; N18.9 Chronic kidney disease, unspecified
CPT/HCPCS: 36415; 74430; 80048; 80053; 80061; 81001; 82652; 82962; 83036; 83735; 84100; 84439; 84443; 85025; 85610; 85730; 87086; 96374; 96375; C2617; J0360; J0696; J1170; J1815; J2250; J2270; J2405; J2765; J3010; J7030